=== PATIENT | female | born 1940 | race Caucasian/White ===

== ENCOUNTER 2022-04-04 16:16 | Inpatient (IN) | payer MEDICARE, BC ==
[2022-04-04 16:57] LABS: #Basophils 0.1 10x3/uL (0.0-0.2); #Eosinphils 0.5 10x3/uL (0.0-0.5); #Monocytes 0.8 10x3/uL (0.0-1.1); #Neutrophils 16.4 10x3/uL (1.5-8.4); %Basophils 0.3 % (0.0-2.0); %Eosinophils 2.5 % (0.0-6.0); %Lymphocytes 5.1 % (18.0-47.0); %Monocytes 4.3 % (0.0-10.0); %Neutrophils 87.3 % (40.0-75.0); Hemoglobin 12.1 g/dL (12.0-15.5); Mean Corpuscular HGB CONC 31.3 g/dL (32.0-36.0); Mean Corpuscular Hemoglobin 29.7 pg (27.0-33.0); Mean Corpuscular Volume 94.8 fl (81.6-98.3); Mean Platelet Volume 11.1 fl (7.4-10.4); Platelet Count 324 10x3/uL (150-450); RBC Distribution Width 13.3 % (11.5-14.5); Red Blood Cell (RBC) Count 4.07 10x6/uL (3.90-5.03); White Blood Cell (WBC) Count 18.8 10x3/uL (3.5-10.5)
[2022-04-04] MEDS ORDERED: Magnesium 2 GM/50 ML BAG (IN WATER) ONE (17:04)
[2022-04-04] MEDS ORDERED: methylPREDNISolone Sod Succ/PF 125 MG/2 ML VIAL ONE (17:04)
[2022-04-04 17:08] LABS: ALT (SGPT) 27 U/L (8-55); AST (SGOT) 33 U/L (5-34); Albumin 3.4 g/dL (3.4-4.8); Alkaline Phosphatase 110 U/L (40-110); Anion Gap 13 mmol/L (10-20); BUN (Urea Nitrogen) 23 mg/dL (9.8-20.1); Bilirubin, Total 0.3 mg/dL (0.2-1.2); Calc. Creatinine Clearance 0 mL/min (70-130); Calcium 8.2 mg/dL (7.8-10.44); Carbon Dioxide 31 mmol/L (23-31); Chloride 101 mmol/L (98-107); Estimated GFR 52; Globulin 2.9 g/dL (2.4-3.5); Glucose 101 mg/dL (83-110); Potassium 4.8 mmol/L (3.5-5.1); Protein, Total 6.3 g/dL (5.8-8.1); Sodium 140 mmol/L (136-145)
[2022-04-04] MEDS ORDERED: Cefepime 2 GM VIAL ONE (17:45)
[2022-04-04] MEDS ORDERED: Acetaminophen 325 MG TAB PO PRN (18:40)
[2022-04-04 20:55] VITALS: BMI 18.9
[2022-04-04] MEDS ORDERED: Carvedilol 6.25 MG TAB PO SCH (21:00)
[2022-04-04] MEDS: Montelukast Sodium 10 mg Tablet PO SCH (21:31)
[2022-04-04 23:04] LABS: SARS-CoV-2 NAA Rapid Test Not Detected (NotDetected)
[2022-04-05] MEDS: methylPREDNISolone Sod Succ 40 MG VIAL IVP SCH ×4 (01:12→17:50)
[2022-04-05 05:22] LABS: #Monocytes 0.1 10x3/uL (0.0-1.1); #Neutrophils 12.4 10x3/uL (1.5-8.4); %Basophils 0.1 % (0.0-2.0); %Lymphocytes 3.3 % (18.0-47.0); %Monocytes 0.4 % (0.0-10.0); %Neutrophils 95.5 % (40.0-75.0); Hemoglobin 11.3 g/dL (12.0-15.5); Mean Corpuscular Hemoglobin 29.5 pg (27.0-33.0); Mean Corpuscular Volume 92.2 fl (81.6-98.3); Mean Platelet Volume 11.2 fl (7.4-10.4); Platelet Count 325 10x3/uL (150-450); RBC Distribution Width 13.2 % (11.5-14.5); Red Blood Cell (RBC) Count 3.83 10x6/uL (3.90-5.03); White Blood Cell (WBC) Count 12.9 10x3/uL (3.5-10.5)
[2022-04-05 05:26] LABS: Anion Gap 15 mmol/L (10-20); BUN (Urea Nitrogen) 19 mg/dL (9.8-20.1); Calc. Creatinine Clearance 43 mL/min (70-130); Calcium 8.2 mg/dL (7.8-10.44); Carbon Dioxide 27 mmol/L (23-31); Chloride 100 mmol/L (98-107); Estimated GFR 69; Glucose 131 mg/dL (83-110); Potassium 4.5 mmol/L (3.5-5.1); Sodium 137 mmol/L (136-145)
[2022-04-05] MEDS: Cefepime 1 GM in Sodium Chloride 0.9% 100 ML IVPB SCH ×2 (05:40→17:50)
[2022-04-05] MEDS: Levothyroxine Sodium 88 MCG TAB PO SCH (05:41)
[2022-04-05] MEDS: Mometasone/Formoterol 200/5 60 PUFF INH SCH (07:04)
[2022-04-05] MEDS: Enoxaparin Sodium 40 MG/0.4 ML SYRINGE SC SCH (09:36)
[2022-04-05] MEDS: Furosemide 40 MG TAB PO SCH (09:37)
[2022-04-05] MEDS: Donepezil HCl 5 MG TAB PO SCH (09:37)
[2022-04-05] MEDS: Carvedilol 6.25 MG TAB PO SCH ×2 (09:37→16:59)
[2022-04-05] MEDS: FLUoxetine HCl 20 MG CAP PO SCH (09:37)
[2022-04-05] MEDS: Aspirin 81 mg Enteric Coated Tablet PO SCH (09:37)
[2022-04-05] MEDS: Montelukast Sodium 10 mg Tablet PO SCH (20:41)
[2022-04-06] MEDS: methylPREDNISolone Sod Succ 40 MG VIAL IVP SCH ×3 (00:50→12:32)
[2022-04-06 05:14] LABS: Anion Gap 12 mmol/L (10-20); BUN (Urea Nitrogen) 24 mg/dL (9.8-20.1); Calc. Creatinine Clearance 36 mL/min (70-130); Carbon Dioxide 28 mmol/L (23-31); Chloride 102 mmol/L (98-107); Potassium 4.2 mmol/L (3.5-5.1); Sodium 138 mmol/L (136-145)
[2022-04-06 05:15] LABS: Calcium 8.2 mg/dL (7.8-10.44); Estimated GFR 55; Glucose 136 mg/dL (83-110)
[2022-04-06 05:18] LABS: #Monocytes 0.3 10x3/uL (0.0-1.1); #Neutrophils 14.6 10x3/uL (1.5-8.4); %Basophils 0.1 % (0.0-2.0); %Neutrophils 93.3 % (40.0-75.0); Hemoglobin 11.9 g/dL (12.0-15.5); Mean Corpuscular HGB CONC 32.9 g/dL (32.0-36.0); Mean Corpuscular Hemoglobin 29.2 pg (27.0-33.0); Mean Corpuscular Volume 88.9 fl (81.6-98.3); Mean Platelet Volume 11.2 fl (7.4-10.4); Platelet Count 339 10x3/uL (150-450); RBC Distribution Width 13.2 % (11.5-14.5); Red Blood Cell (RBC) Count 4.07 10x6/uL (3.90-5.03); White Blood Cell (WBC) Count 15.7 10x3/uL (3.5-10.5)
[2022-04-06] MEDS: Cefepime 1 GM in Sodium Chloride 0.9% 100 ML IVPB SCH (05:32)
[2022-04-06] MEDS: Levothyroxine Sodium 88 MCG TAB PO SCH (05:32)
[2022-04-06] MEDS: Mometasone/Formoterol 200/5 60 PUFF INH SCH (06:40)
[2022-04-06] MEDS: FLUoxetine HCl 20 MG CAP PO SCH (10:46)
[2022-04-06] MEDS: Carvedilol 6.25 MG TAB PO SCH (10:46)
[2022-04-06] MEDS: Aspirin 81 mg Enteric Coated Tablet PO SCH (10:46)
[2022-04-06] MEDS: Donepezil HCl 5 MG TAB PO SCH (10:46)
[2022-04-06] MEDS: Furosemide 40 MG TAB PO SCH (10:47)
[2022-04-06] MEDS: Enoxaparin Sodium 40 MG/0.4 ML SYRINGE SC SCH (10:47)
[2022-04-06 11:47] VITALS: TEMP 98
[2022-04-06 15:52] VITALS: BP 114/56
== END 2022-04-06 17:28 | disposition home or self-care (01) | DRG 193 ==
LOC: CSHERS 16:16 → CSHTELE 20:40
PROVIDERS: ADMIT Family Medicine; ATTEND Internal Medicine
DX: J18.9 Pneumonia, unspecified organism (principal); J96.01 Acute respiratory failure with hypoxia; I50.22 Chronic systolic (congestive) heart failure; I42.0 Dilated cardiomyopathy; J45.901 Unspecified asthma with (acute) exacerbation; I11.0 Hypertensive heart disease with heart failure; G47.33 Obstructive sleep apnea (adult) (pediatric); G30.9 Alzheimer's disease, unspecified; F02.80 Dementia in other diseases classified elsewhere, unspecified severity, without behavioral disturbance, psychotic disturbance, mood disturbance, and anxiety; R53.81 Other malaise; F32.A Depression, unspecified; Z20.822 Contact with and (suspected) exposure to COVID-19; Z79.899 Other long term (current) drug therapy; Z79.890 Hormone replacement therapy; Z79.82 Long term (current) use of aspirin; Z90.710 Acquired absence of both cervix and uterus; Z98.890 Other specified postprocedural states; Z82.0 Family history of epilepsy and other diseases of the nervous system
CPT/HCPCS: 36415; 71045; 80048; 80053; 83605; 85025; 87040; 93005; 93306; 94640; 94760; J0692; J1650; J1956; J2920; J2930; J3475; J3490; J7620; U0002